=== PATIENT | male | born 1990 | race Caucasian/White ===

== ENCOUNTER 2024-09-16 18:38 | Emergency (ER) | payer MEDICAID, SELFPAY ==
[2024-09-16 18:45] VITALS: BP 232/151; PULSE 89; RESP 20; TEMP 37; O2SAT 95; BMI 65.4
--- NOTE | 2024-09-16 18:56 | CTR_ITS ---
PROCEDURE INFORMATION: Exam: CT Head Without Contrast Exam date and time: 09/16/2024 9:11 PM Age: 33 years old Clinical indication: Numbness / parasthesia; Left sided facial numbness with hypertension. ; Additional info: Hypertension, facial paresthesia TECHNIQUE: Imaging protocol: Computed tomography of the head without contrast. Radiation optimization: All CT scans at this facility use at least one of these dose optimization techniques: automated exposure control; mA and/or kV adjustment per patient size (includes targeted exams where dose is matched to clinical indication); or iterative reconstruction. COMPARISON: No relevant prior studies available. RADIATION DOSE METRICS: Total DLP (mGy-cm): 1179.08 FINDINGS: Brain: Normal. No hemorrhage. Unremarkable white matter. No mass effect. Cerebral ventricles: No ventriculomegaly. Paranasal sinuses: Visualized sinuses are unremarkable. No fluid levels. Mastoid air cells: Visualized mastoid air cells are well aerated. Bones: Unremarkable. No acute fracture. Soft tissues: Unremarkable. CT/CT head wo con* [id number] IMPRESSION: No acute intracranial abnormality.
[2024-09-16 19:20] LABS: Basophils # 0.1 10^3/uL (0.0-0.1); Basophils % 0.6 %; Eosinophils % 0.4 %; Hematocrit 43.5 % (37-53); Lymphocytes # 3.1 10^3/uL (0.8-4.8); Lymphocytes % 33.6 %; Mean Corpuscular HGB Conc 31.3 g/dL (30-55); Mean Corpuscular Hemoglobin 29.8 pg (27-33); Mean Corpuscular Volume 95.4 fl (82-101); Mean Platelet Volume 10.4 fL (7.4-10.4); Monocytes # 0.6 10^3/uL (0.2-0.9); Monocytes % 6.3 %; Neutrophils # 5.42 10^3/uL (1.8-7.7); Neutrophils % 58.5 %; Nucleated Red Blood Cells % 0 %; Platelet Count 326 10^3/cmm (157-399); Red Blood Count 4.56 10^6/uL (3.85-5.65); Red Cell Distribution Width 13.4 % (12.1-15.1); White Blood Count 9.28 10^3/uL (3.29-11.43)
[2024-09-16 19:45] LABS: INR 0.92 (0.8-1.2)
[2024-09-16 19:46] LABS: Partial Thromboplastin Time 28.4 SECONDS (23.9-36.7)
[2024-09-16 19:58] LABS: Alanine Aminotransferase 27 U/L (0-41); Albumin Level 4.1 g/dL (3.5-5.2); Alkaline Phosphatase 101 U/L (40-130); Anion Gap 18.9 (5-19); Aspartate Amino Transferase 17 U/L (0-40); Blood Urea Nitrogen 10 mg/dL (6-20); Calcium 9.2 mg/dL (8.5-10.5); Carbon Dioxide 22 mmol/L (22-29); Chloride 103 mmol/L (98-107); Creatinine Clr Calc Pharmacy 227.5736; Globulin 3.9 g/dL (1.3-4.6); Glomerular Filtration Rate 129.1 mL/min (90-130); Glucose 112 mg/dL (65-115); Osmolality Calculated 290 mOsm/kg (285-295); Phosphorus 2.5 mg/dL (2.5-4.5); Potassium 3.9 mmol/L (3.5-5.1); Sodium 140 mmol/L (136-145); Thyroid Stimulating Hormone 1.86 uIU/mL (0.27-4.20); Total Bilirubin 0.7 mg/dL (0.15-1.2)
--- NOTE | 2024-09-16 21:23 | ECG_ITS ---
[facility] Test Date: 2024-09-16 Pat Name: Raul Black Department: Room: Gender: Male Trashman: : 1990 Requested By: Shahbaz Gay Order Number: [id number] Cedillo MD: Libia Coleman M.D. Measurements Intervals Adams Rate: 86 P: 31 TN: 173 QRS: 14 QRSD: 92 T: 16 QT: 353 QTc: 424 Interpretive Statements SINUS RHYTHM No previous ECG available for comparison Electronically Signed On 09-17-2024 12:32:50 CDT by Libia Coleman M.D. [email or web address] [id number]
[2024-09-16] MEDS: propranolol 20 mg Tablet PO (22:01)
[2024-09-16] MEDS: NIFEdipine 10 mg Capsule PO (22:01)
[2024-09-16 22:04] VITALS: BP 246/152; PULSE 113; RESP 26; O2SAT 96
[2024-09-16 22:32] VITALS: BP 167/90; PULSE 84; RESP 17; O2SAT 92
[2024-09-16 22:35] LABS: Bilirubin Urine Negative (Negative); Blood Urine Negative (Negative); Glucose Urine UA Negative (Normal); Ketones Urine Negative (Negative); Leukocyte Esterase Urine Negative (Negative); Nitrate Urine Negative (Negative); Protein Urine Trace (Negative); Specific Gravity, Urine 1.023 (1.005-1.030); Urine Appearance Clear (CLEAR); Urine Color Yellow (Yellow); pH Urine 5.5 (5-7)
[2024-09-16 22:40] LABS: Add Urine Microscopic? YES; Bacteria Urine None Seen /hpf; Hyaline Casts Urine 9.07 /lpf; RBC Urine 0-2 /hpf (0-2); Squamous Epithelial Cell Urine 0-5 /hpf (0-5); WBC Urine 0-5 /hpf (0-5)
[2024-09-16 22:47] LABS: UA Slide Review UA Slide Review Perf
[2024-09-16 23:03] VITALS: BP 149/90; PULSE 67; RESP 16; O2SAT 92
--- NOTE | 2024-09-16 23:17 | ED_ITS ---
HPI - Arrhythmia/Palpitations 2 General: Chief Complaint: Arrhythmia/Palpitations Stated Complaint: heart beating fast hard,occ numbness on left side Time Seen by Provider: 09/16/24 20:56 Source: patient Mode of arrival: ambulatory Limitations: no limitations History of Present Illness: Patient complaint of palpitations and fast heart rate. On arrival has significant elevated blood pressure. 232/151. No previous meds, no previous heart conditions. Does have some heart conditions in his side of the family. Also complained in triage of left facial tingling and left arm tingling but did not make these complaints to me. Related Data Previous Rx's ?Medication ?Instructions ?Recorded amoxicillin 875 mg-potassium 1 tab PO BID 7 days #14 t abs 05/15/22 clavulanate 125 mg tablet hydrochlorothiazide 25 mg tablet 25 mg PO QAM Hyperten mt #30 tabs 09/16/24 propranolol 10 mg tablet 10 mg PO Q8H PRN palpitation s #30 09/16/24 tabs Allergies Allergy/AdvReac Type Severity Reaction Status Date / Time No Known Allergies Allergy Unverified 05/15/22 15:05 Review of Systems 2 General: Reports: 10 or more systems reviewed and unremarkable except in HPI and below Physical Exam 2 Const: COMMON NORMALS: no acute distress, healthy appearing, alert and well nourished GENERAL APPEARANCE: well kempt and well developed NUTRITIONAL APPEARANCE: obese HENMT: COMMON NORMALS: normocephalic, atraumatic, external ears normal and moist oral mucous membranes HEAD & SCALP: normocephalic and atraumatic E XTERNAL EAR: Yes external ears normal Eye: COMMON NORMALS: Equal, round and reactive pupils present, EOMs intact bilaterally and conjunctivae normal CONJUNCTIVA: Yes conjunctivae normal P UPIL: Yes Equal, round and reactive pupils present Neck/C-Spine: COMMON NORMALS: full ROM, no lymphadenopathy and supple Chest: CHEST: Yes Symmetrical chest wall rise and No Surgical scars present (Chest) Resp: COMMON NORMALS: normal respiratory effort, No retractions, No use of accessory muscles and clear to auscultation bilaterally AUSCULTATION: clear to auscultation bilaterally Cardio: COMMON NORMALS: regular rate, regular rhythm, S1 normal heart sound present, S2 normal heart sound present, No gallops present (Cardio), No clicks present (Cardio), No murmurs present (Cardio) and No rub (Cardio) RATE: r egular rate RHYTHM: regular rhythm HEART SOUNDS: S1 normal heart sound present, S2 normal heart sound present and no murmurs PERIPHERAL PULSES: o ther (Radial pulses 2+ and symmetric) GI: COMMON NORMALS: Soft to palpation, non-tender and no masses INSPECTION: No abdominal distension PALPATION: Yes Soft to palpation, No Guarding due to palpation present (GI) and No Rebound tenderness present : COMMON NORMALS: Yes no CVA tenderness BLADDER/KIDNEY EXAM: Yes no CVA tenderness Back/Pelvis: COMMON NORMALS: no CVA tenderness Extremity: COMMON NORMALS: normal to inspection, full ROM, capillary refill normal and no clubbing, cyanosis or edema Neuro: SENSORIUM/ORIENTATION: Yes alert Psych: APPEARANCE: Yes well kempt Skin: COMMON NORMALS: no rashes or lesions noted, no wounds, turgor normal and no jaundice GENERAL SKIN EXAM: no rashes or lesions noted and turgor normal Course 2 Vital Signs: Vital signs: Vital Signs Temperature 98.6 F 09/16/24 18:45 Pulse Rate 67 09/16/24 23:03 Respiratory Rate 16 09/16/24 23:03 Blood Pressure 149/90 09/16/24 23:03 Pulse Oximetry 92 09/16/24 23:03 Oxygen Delivery Me thod Room Air 09/16/24 23:03 MDM - Arrhythmia/Palpitations Medical Decision Making Discussed with patient's the differential for palpitations. Such as short-term abnormal heart rhythms but more likely PVCs. Patient advised to follow-up with PCP we will start him on medication for blood pressure as his blood pressure was significantly elevated. Will start a single tablet by dose and advised him to follow-up with PCP within 1 week. Concerning his palpitations we will put him on propranolol 10 mg as needed for palpitations Medical Records I reviewed the patient's medical records. Lab Data I reviewed the patient's lab results. 09/16/24 19:14 09/16/24 19:[address] 09/16/24 18:56 IMPRESSION: No acute intracranial abnormality. Laboratory Results WBC 9.28 10^3/uL (3.29-11.43) 09/16/24 19:14 RBC 4.56 10^6/uL (3.85-5.65) 09/16/24 19:14 Hgb 13.60 g/dL (11.27-16.99) 09/16/24 19:14 Hct 43.5 % (37-53) 09/16/24 19:14 MCV 95.4 fl (82-101) 09/16/24 19:14 MCH 29.8 pg (27-33) 09/16/24 19:14 MCHC 31.3 g/dL (30-55) 09/16/24 19:14 RDW 13.4 % (12.1-15.1) 09/16/24 19:14 Plt Count 326 10^3/cmm (157-399) 09/16/24 19:14 MPV 10.4 fL (7.4-10.4) 09/16/24 19:14 Neut % (Auto) 58.5 % 09/16/24 19:14 Lymph % (Auto) 33.6 % 09/16/24 19:14 [place] % (Auto) 6.3 % 09/16/24 19:14 Eos % (Auto) 0.4 % 09/16/24 19:14 Baso % (Auto) 0.6 % 09/16/24 19:14 Neut # (Auto) 5.42 10^3/uL (1.8-7.7) 09/16/24 19:14 Lymph # (Auto) 3.1 10^3/uL (0.8-4.8) 09/16/24 19:14 [place] # (Auto) 0.6 10^3/uL (0.2-0.9) 09/16/24 19:14 Eos # (Auto) 0.0 10^3/uL (0.0-0.8) 09/16/24 19:14 Baso # (Auto) 0.1 10^3/uL (0.0-0.1) 09/16/24 19:14 Nucleated RBC % (auto) 0 % 09/16/24 19:14 Nucleated RBCs # 0.0 /100WBC 09/16/24 19:14 PT 13.00 SECONDS (12.1-14.9) 09/16/24 19:14 INR 0.92 (0.8-1.2) 09/16/24 19:14 APTT 28.4 SECONDS (23.9-36.7) 09/16/24 19:14 Sodium 140 mmol/L (136-145) 09/16/24 19:14 Potassium 3.9 mmol/L (3.5-5.1) 09/16/24 19:14 Chloride 103 mmol/L (98-107) 09/16/24 19:14 Carbon Dioxide 22 mmol/L (22-29) 09/16/24 19:14 Anion Gap 18.9 (5-19) 09/16/24 19:14 BUN 10 mg/dL (6-20) 09/16/24 19:14 Creatinine 0.7 mg/dL (0.7-1.2) 09/16/24 19:14 GFR Calculation 129.1 mL/min (90-130) 09/16/24 19:14 Glucose 112 mg/dL (65-115) 09/16/24 19:14 Calculated Osmolality 290 mOsm/kg (285-295) 09/16/24 19:14 Calcium 9.2 mg/dL (8.5-10.5) 09/16/24 19:14 Phosphorus 2.5 mg/dL (2.5-4.5) 09/16/24 19:14 Magnesium 2.0 mg/dL (1.7-2.3) 09/16/24 19:14 Total Bilirubin 0.7 mg/dL (0.15-1.2) 09/16/24 19:14 AST 17 U/L (0-40) 09/16/24 19:14 ALT 27 U/L (0-41) 09/16/24 19:14 Alkaline Phosphatase 101 U/L (40-130) 09/16/24 19:14 Total Protein 8.0 g/dL (6.6-8.7) 09/16/24 19:14 Albumin 4.1 g/dL (3.5-5.2) 09/16/24 19:14 Globulin 3.9 g/dL (1.3-4.6) 09/16/24 19:14 TSH 1.86 uIU/mL (0.27-4.20) 09/16/24 19:14 Urine Color Yellow (Yellow) 09/16/24 22:19 Urine Appearance Clear (CLEAR) 09/16/24 22:19 Urine pH 5.5 (5-7) 09/16/24 22:19 Ur Specific [place] 1.023 (1.005-1.030) 09/16/24 22:19 Urine Protein Trace (Negative) A 09/16/24 22:19 Urine Glucose (UA) Negative (Normal) 09/16/24 22:19 Urine Ketones Negative (Negative) 09/16/24 22:19 Urine Blood Negative (Negative) 09/16/24 22:19 Urine Nitrate Negative (Negative) 09/16/24 22:19 Urine Bilirubin Negative (Negative) 09/16/24 22:19 Urine Urobilinogen 1.0 mg/dL (Negative) 09/16/24 22:19 Ur Leukocyte Esterase Negative (Negative) 09/16/24 22:19 Urine RBC 0-2 /hpf (0-2) 09/16/24 22:19 Urine WBC 0-5 /hpf (0-5) 09/16/24 22:19 Ur Squamous Epith Cells 0-5 /hpf (0-5) 09/16/24 22:19 Amorphous Sediment Not Reportable 09/16/24 22:19 Urine Bacteria None seen /hpf (NONE) 09/16/24 22:19 Hyaline Casts 9.07 /lpf 09/16/24 22:19 All radiology interpretation(s) finalized by discharge Discharge Plan Discharge Patient Disposition: Home Clinical Impression: Palpitations, Elevated blood pressure reading Condition: Stable Prescriptions: New propranolol 10 mg tablet 10 mg PO Q8H PRN (Reason: palpitations) Qty: 30 0RF hydrochlorothiazide 25 mg tablet 25 mg PO QAM Qty: 30 0RF Rx Instructions: Follow-up with a PCP for further refills. No Action amoxicillin-pot clavulanate 875-125 mg tablet 1 tab PO BID 7 Days Qty: 14 0RF Discharge Orders: Discharge ED (Routine); Ordered 09/16/24 Ordered By: Shahbaz Gay Discharge Diet: Usual diet Discharge Activity: Resume usual activity Patient Instructions: Heart Palpitations (ED) Print Language: Hungarian Coding Level of Care Code ED Inspector Handbag Frames for Tray Sultana
[2024-09-16 23:44] VITALS: BP 159/104; PULSE 61; O2SAT 92
== END 2024-09-16 23:45 | disposition home or self-care (01) ==
PROVIDERS: Emergency Medicine; Emergency Provider Emergency Medicine
DX: R00.2 Palpitations (principal); R03.0 Elevated blood-pressure reading, without diagnosis of hypertension
CPT/HCPCS: 36415; 70450; 80053; 81001; 83735; 84100; 84443; 85025; 85610; 85730; 93005; 99284; J9999